=== PATIENT | male | born 1945 | race Caucasian/White ===

== ENCOUNTER → 2017-06-23 | Outpatient (CLI) | payer MEDICARE, BC ==
[~2017-06-23] MED LIST: METFORMIN HCL500 MG PO; NORCO 5-325 TA1 EACH PO; UNICOMPLEX M TA1 TA1 PO
== END ==
LOC: M.ULTRA 12:56
DX: I65.23 Occlusion and stenosis of bilateral carotid arteries (principal); I77.9 Disorder of arteries and arterioles, unspecified

== ENCOUNTER → 2017-12-31 | Outpatient (CLI) | payer OTHER | LOC: M.CT 07:32 | DX: Z13.6 Encounter for screening for cardiovascular disorders (principal) ==

== ENCOUNTER 2018-05-30 08:48 | Emergency (ER) | payer MEDICARE, BC ==
[~2018-05-30] VITALS: Ht 177.8 cm; Wt 76.2 kg
[2018-05-30 10:03] VITALS: BP 131/81
== END 2018-05-30 10:04 | disposition home or self-care (01) ==
LOC: M.ERS 08:48
DX: K59.00 Constipation, unspecified (principal); E11.9 Type 2 diabetes mellitus without complications; Z85.118 Personal history of other malignant neoplasm of bronchus and lung